=== PATIENT | male | born 1960 | race Native Hawaiian/Other Pacific Islander ===

== ENCOUNTER 2022-12-22 16:47 | Emergency (ER) | payer MEDICAID ==
[~2022-12-22] VITALS: Ht 175.3 cm; Wt 100.0 kg
[2022-12-22 17:36] VITALS: BP 117/72; PULSE 69; RESP 18; TEMP 98.4
[2022-12-22] MEDS ORDERED: DOCU-385 PO (18:22)
[2022-12-22] MEDS ORDERED: TOPI100T37 PO (18:22)
[2022-12-22] MEDS ORDERED: ARIP10TA8 PO (18:22)
[2022-12-22] MEDS ORDERED: BENZ1TAB84 PO (18:22)
[2022-12-22] MEDS ORDERED: DIVA500T53 PO (18:22)
[2022-12-22] MEDS ORDERED: OLOP5DRO27 OU (18:22)
[2022-12-22] MEDS ORDERED: [UNRECOGNIZED DRUG - CODE] PO (18:22)
[2022-12-22] MEDS ORDERED: LORA-1370 PO (18:22)
[2022-12-22] MEDS ORDERED: METF-1211 PO (18:22)
[2022-12-22] MEDS ORDERED: DOCU100C33 PO (18:22)
[2022-12-22] MEDS ORDERED: CALC1CAP22 PO (18:22)
[2022-12-22] MEDS ORDERED: ACET-2247 PO (18:22)
[2022-12-22] MEDS ORDERED: CHOL100062 PO (18:22)
[2022-12-22] MEDS ORDERED: TAMS0.4C94 PO (18:22)
[2022-12-22 18:50] LABS: BASOPHILS % (AUTO) 0.7 % (0.0-2.0); EOSINOPHILS % (AUTO) 4.3 % (1.0-6.0); HEMATOCRIT 35.8 % (41-53); LYMPHOCYTES # (AUTO) 1.9 K/uL (1.0-4.8); LYMPHOCYTES % (AUTO) 31.7 % (22.0-44.0); MEAN CORPUSCULAR HEMOGLOBIN 32.1 pg (26.0-34.0); MEAN CORPUSCULAR HGB CONC 33.4 G/dL (31.0-37.0); MEAN CORPUSCULAR VOLUME 96 fL (80-100); MONOCYTES # (AUTO) 0.5 K/uL (0.1-1.0); NEUTROPHILS # (AUTO) 3.3 K/uL (1.8-7.7); NEUTROPHILS % (AUTO) 55.3 % (40.0-70.0); PLATELET COUNT (AUTO) 157 K/uL (150-450); RED BLOOD CELL COUNT(AUTO) 3.72 MIL/uL (4.50-5.90); RED CELL DISTRIBUTION WIDTH 15.2 % (11.5-14.5); WHITE BLOOD COUNT (AUTO) 5.9 K/uL (4.5-11.0)
[2022-12-22 19:00] LABS: ANION GAP 6 mmol/L (8-16); CALCIUM, TOTAL 8.8 mg/dL (8.8-10.5); CARBON DIOXIDE 27 mmol/L (22-29); CHLORIDE 105 mmol/L (98-107); CREATININE 0.93 mg/dL (0.60-1.30); GLOMERULAR FILTR. RATE CALC > 60 mL/min (>60); GLUCOSE,RANDOM 107 mg/dL (70-110); POTASSIUM 4.1 mmol/L (3.5-5.1); SODIUM SERUM 138 mmol/L (136-145); UREA NITROGEN, BLOOD 13 mg/dL (7-18)
[2022-12-22 19:05] LABS: ALANINE AMINOTRANSFERASE 19 U/L (12-78); ALKALINE PHOSPHATASE 93 U/L (46-116); ASPARTATE AMINOTRANSFERASE 24 U/L (15-37); BILIRUBIN,TOTAL 0.2 mg/dL (0.1-1.0); LIPASE 24 U/L (16-77); TOTAL PROTEIN, SERUM 7.3 g/dL (6.4-8.2)
[2022-12-22 19:07] LABS: TROPONIN I-HIGH SENSITIVITY 9 ng/L (<76)
[2022-12-22] MEDS ORDERED: POLY17PO PO (20:47)
== END 2022-12-22 21:08 | disposition home or self-care (01) ==
LOC: EMS 16:48
DX: K59.00 Constipation, unspecified (principal); R10.11 Right upper quadrant pain; E11.9 Type 2 diabetes mellitus without complications
CPT/HCPCS: 74022; 76705; 80053; 82962; 83690; 84484; 85025; 93005; 99285

== ENCOUNTER 2023-11-02 08:07 | Day surgery (SDC) | payer MEDICAID ==
[~2023-11-02] VITALS: Ht 170.2 cm; Wt 116.3 kg
[~2023-11-02 08:07] MED LIST: ARIP10TA8 PO; BENZ0.5T52 PO; CALC-1271 PO; CHOL100062 PO; DIVA-153 PO; GLYB1.253 PO; LIDOCAINE/PF 2% 5 ML VIAL ONE; LISI5TAB21 PO; METF-1211 PO; NAPR-1025 PO; PROPOFOL 1% 20 ML VIAL IVP ONE; TAMS0.4C94 PO; TOPI100T37 PO
[2023-11-02 10:01] LABS: GLUCOMETER DEV NAME(LOC) SDS.; GLUCOSE,POINT OF CARE 226 MG/DL (70-110)
[2023-11-05] MEDS ORDERED: SODIUM CHLORIDE 0.9% 1,000 ML IV ONE (08:00)
== END 2023-11-02 12:30 | disposition home or self-care (01) ==
LOC: SURGERY 08:07
PROVIDERS: ATTEND Internal Medicine Gastroenterology
DX: D64.9 Anemia, unspecified (principal); K63.5 Polyp of colon; I10 Essential (primary) hypertension; E11.9 Type 2 diabetes mellitus without complications; E78.00 Pure hypercholesterolemia, unspecified; Z87.891 Personal history of nicotine dependence; Z79.2 Long term (current) use of antibiotics; Z79.899 Other long term (current) drug therapy
CPT/HCPCS: 45385; 88305; 82962; J2704; J3490